=== PATIENT | female | born 1975 | race Caucasian/White ===

== ENCOUNTER 2016-12-29 05:53 | Emergency (ER) | payer MEDICAID ==
[~2016-12-29] VITALS: Ht 162.6 cm; Wt 110.0 kg
[~2016-12-29 05:53] MED LIST: B12/1TAB PO; CLON-365 PO; CYAN100028 PO; LAMO25TA6 PO; LORA10TA75 PO; MAGN296S PO; PROM25SU35 PR; TOPI25TA32 PO; TOPI50TA35 PO; VERA120T5 PO
[2016-12-29] MEDS ORDERED: CYCL-259 PO (06:23)
[2016-12-29] MEDS ORDERED: DIAZEPAM 5 MG/ML, 2ML IVPush ONE (07:00)
[2016-12-29] MEDS ORDERED: KETOROLAC 30 MG/1 ML ONE (08:49)
[2016-12-29] MEDS ORDERED: KETOROLAC 30 MG/1 ML IVPush ONE (09:00)
[2016-12-29 10:01] VITALS: BP 103/60
== END 2016-12-29 10:08 | disposition home or self-care (01) ==
LOC: ED 06:43
DX: M51.16 Intervertebral disc disorders with radiculopathy, lumbar region (principal); M54.42 Lumbago with sciatica, left side; G89.29 Other chronic pain; R20.8 Other disturbances of skin sensation; Z88.6 Allergy status to analgesic agent; Z88.8 Allergy status to other drugs, medicaments and biological substances
CPT/HCPCS: 96374; 96375; 99284; J1885; J3360; J7512

== ENCOUNTER → 2017-01-22 | Outpatient (CLI) | payer MEDICAID ==
[~2017-01-22] MED LIST changes: +CYCL-259 PO
== END | disposition home or self-care (01) ==
LOC: CFH 13:31
PROVIDERS: ATTEND Nurse Practitioner Family
DX: N64.9 Disorder of breast, unspecified (principal)
CPT/HCPCS: 76642; G0204

== ENCOUNTER 2017-07-27 12:09 | Emergency (ER) | payer MEDICAID ==
[~2017-07-27] VITALS: Ht 160 cm; Wt 106.4 kg
[~2017-07-27 12:09] MED LIST changes: -MAGN296S PO; +MAGN296S9 PO
[2017-07-27 13:54] LABS: CULTURE INDICATED? YES; MICROSCOPIC INDICATED
[2017-07-27] MEDS ORDERED: BIRTH CONTROL PO (14:19)
[2017-07-27] MEDS ORDERED: CEFTRIAXONE PMX 1GM/50ML 50 ML ONE (14:50)
[2017-07-27] MEDS ORDERED: KETOROLAC 30 MG/1 ML ONE (14:50)
[2017-07-27 15:00] LABS: BASOPHILS # (AUTO) 0.02 x10^3/uL (0-0.1); BASOPHILS % (AUTO) 0 % (0-1); EOSINOPHILS # (AUTO) 0.15 x10^3/uL (0-0.4); EOSINOPHILS % (AUTO) 2 % (1-7); LYMPHOCYTES # (AUTO) 2.07 x10^3/uL (1-3.4); LYMPHOCYTES % (AUTO) 27 % (22-44); MD NO; MEAN CORPUSCULAR HEMOGLOBIN 31.9 pg (27.0-34.8); MEAN CORPUSCULAR HGB CONC 33.6 g/dL (32.4-35.8); MEAN CORPUSCULAR VOLUME 94.8 fL (80-100); MEAN PLATELET VOLUME 9.6 fL (7.4-10.4); MONOCYTES # (AUTO) 0.52 x10^3/uL (0.2-0.8); MONOCYTES % (AUTO) 7 % (2-9); NEUTROPHILS # (AUTO) 5.05 x10^3/uL (1.8-6.8); NEUTROPHILS % (AUTO) 65 % (42-75); PLATELET COUNT 169 x10^3/uL (130-400); RED BLOOD COUNT 4.78 x10^6/uL (3.82-5.3); RED CELL DISTRIBUTION WIDTH 14.6 % (9.6-15.2)
[2017-07-27] MEDS ORDERED: SODIUM CHLORIDE FLUSH 10ML SYR IVF ONE (15:00)
[2017-07-27] MEDS ORDERED: KETOROLAC 30 MG/1 ML IVPush ONE (15:00)
[2017-07-27] MEDS ORDERED: CEFTRIAXONE PMX 1GM/50ML 50 ML IVPB ONE ×2 (15:00)
[2017-07-27 15:09] LABS: ALBUMIN 3.6 g/dL (3.4-5.0); ANION GAP 8 mmol/L (5-15); CALCIUM 8.7 mg/dL (8.5-10.1); CHLORIDE 111 mmol/L (98-107); CREATININE 0.64 mg/dL (0.55-1.02)
[2017-07-27 17:02] VITALS: BP 115/60
== END 2017-07-27 17:33 | disposition home or self-care (01) ==
LOC: ED 17:08
DX: N30.00 Acute cystitis without hematuria (principal); N10 Acute pyelonephritis; Z90.49 Acquired absence of other specified parts of digestive tract
CPT/HCPCS: 36415; 74176; 80048; 81001; 82040; 84703; 85025; 87077; 87086; 87186; 96365; 96366; 96375; 99285; J0696; J1885

== ENCOUNTER 2018-02-26 14:59 | Emergency (ER) | payer SELFPAY ==
[~2018-02-26] VITALS: Ht 162.6 cm; Wt 101.0 kg
[~2018-02-26 14:59] MED LIST changes: +BIRTH CONTROL PO; -CLON-365 PO; +CLON1TAB4 PO
[2018-02-26 15:27] VITALS: BP 119/68
[2018-02-26] MEDS ORDERED: KETOROLAC 30 MG/1 ML ONE (15:36)
[2018-02-26] MEDS ORDERED: DIAZEPAM 5 MG TABLET ONE (15:36)
[2018-02-26] MEDS ORDERED: KETOROLAC 30 MG/1 ML IM ONE (16:00)
[2018-02-26] MEDS ORDERED: DIAZEPAM 5 MG TABLET PO ONE (16:00)
== END 2018-02-26 17:12 | disposition home or self-care (01) ==
LOC: ED 16:26
DX: M54.12 Radiculopathy, cervical region (principal); G89.29 Other chronic pain; G43.909 Migraine, unspecified, not intractable, without status migrainosus; G40.909 Epilepsy, unspecified, not intractable, without status epilepticus; Z90.49 Acquired absence of other specified parts of digestive tract; Z88.5 Allergy status to narcotic agent; Z88.6 Allergy status to analgesic agent; M54.9 Dorsalgia, unspecified
CPT/HCPCS: 72050; 73030; 96372; 99284; J1885

== ENCOUNTER 2018-12-12 20:24 | Emergency (ER) | payer SELFPAY ==
[~2018-12-12] VITALS: Ht 160 cm; Wt 98.2 kg
[~2018-12-12 20:24] MED LIST changes: +CLON1TAB11 PO; -CLON1TAB4 PO
--- NOTE | 2018-12-12 20:26 | NUR ---
PT IN BATHROOM WHEN CALLED
[2018-12-12] MEDS ORDERED: ALBUTEROL/IPRATROPIUM 2.5MG/0.5MG, 3 ML NPPB ONE (21:00)
--- NOTE | 2018-12-12 21:06 | NUR ---
pt in rad at this time
[2018-12-12] MEDS ORDERED: ALBUTEROL/IPRATROPIUM 2.5MG/0.5MG, 3 ML ONE (21:09)
--- NOTE | 2018-12-12 21:10 | NUR ---
PT MEDICATED PER SEP. RT AT BEDSIDE. POC DISCUSSED. PT DENIES FURTHER NEEDS AT THIS TIME.
[2018-12-12] MEDS ORDERED: ALBUTEROL SULFATE 2.5 MG/3 ML NPPB ONE (22:00)
[2018-12-12 22:29] VITALS: BP 121/74
== END 2018-12-12 22:31 | disposition home or self-care (01) ==
LOC: ED 22:05
DX: J20.8 Acute bronchitis due to other specified organisms (principal); G43.909 Migraine, unspecified, not intractable, without status migrainosus; G89.29 Other chronic pain; G40.909 Epilepsy, unspecified, not intractable, without status epilepticus
CPT/HCPCS: 71046; 93005; 94640; 99284; J7512; J7613; J7620; 99283

== ENCOUNTER 2018-12-27 14:57 | Emergency (ER) | payer OTHER ==
[~2018-12-27] VITALS: Ht 162.6 cm; Wt 98.9 kg
[2018-12-27 15:04] VITALS: BP 117/79
--- NOTE | 2018-12-27 16:39 | NUR ---
Patient/Caregiver given discharge instructions and they have confirmed that they understand the instructions. Patient ambulatory with steady gait.
== END 2018-12-27 17:00 | disposition home or self-care (01) ==
LOC: ED 16:41
DX: S62.336A Displaced fracture of neck of fifth metacarpal bone, right hand, initial encounter for closed fracture (principal); G40.909 Epilepsy, unspecified, not intractable, without status epilepticus; G43.909 Migraine, unspecified, not intractable, without status migrainosus; Z91.040 Latex allergy status; Z88.6 Allergy status to analgesic agent; Z88.8 Allergy status to other drugs, medicaments and biological substances; W19.XXXA Unspecified fall, initial encounter; Y93.39 Activity, other involving climbing, rappelling and jumping off; Y92.098 Other place in other non-institutional residence as the place of occurrence of the external cause; Y99.8 Other external cause status
CPT/HCPCS: 29125; 99283

== ENCOUNTER 2019-08-15 09:04 | Emergency (ER) | payer SELFPAY ==
[~2019-08-15] VITALS: Ht 160 cm; Wt 102.1 kg
[2019-08-15 09:08] VITALS: BP 129/75
--- NOTE | 2019-08-15 09:47 | NUR ---
TO ROOM FROM LOBBY. NAD.
[2019-08-15] MEDS ORDERED: SODIUM CHLORIDE FLUSH 10ML SYR IVF ONE (10:30)
[2019-08-15] MEDS ORDERED: ONDANSETRON 2MG/ML, 2ML IVPush ONE (10:30)
[2019-08-15] MEDS ORDERED: FAMOTIDINE 20 MG/2 ML IVPush ONE (10:30)
[2019-08-15] MEDS ORDERED: SODIUM CHLORIDE 0.9% 1,000ML IVBOLUS ONE (10:30)
[2019-08-15] MEDS ORDERED: FAMOTIDINE 20 MG/2 ML ONE (11:01)
[2019-08-15] MEDS ORDERED: ONDANSETRON 2MG/ML, 2ML ONE (11:01)
[2019-08-15 11:23] LABS: BASOPHILS % (AUTO) 0 % (0-1); EOSINOPHILS # (AUTO) 0.14 x10^3/uL (0-0.4); EOSINOPHILS % (AUTO) 3 % (1-7); LYMPHOCYTES # (AUTO) 1.28 x10^3/uL (1-3.4); LYMPHOCYTES % (AUTO) 31 % (22-44); MD NO; MEAN CORPUSCULAR HEMOGLOBIN 31.5 pg (27.0-34.8); MEAN CORPUSCULAR HGB CONC 33.4 g/dL (32.4-35.8); MEAN CORPUSCULAR VOLUME 94.2 fL (80-100); MEAN PLATELET VOLUME 9.7 fL (7.4-10.4); MONOCYTES # (AUTO) 0.45 x10^3/uL (0.2-0.8); MONOCYTES % (AUTO) 11 % (2-9); NEUTROPHILS # (AUTO) 2.26 x10^3/uL (1.8-6.8); NEUTROPHILS % (AUTO) 55 % (42-75); PLATELET COUNT 150 x10^3/uL (130-400); RED BLOOD COUNT 4.64 x10^6/uL (3.82-5.3); RED CELL DISTRIBUTION WIDTH 13.9 % (9.6-15.2)
[2019-08-15 11:31] LABS: ALBUMIN 3.5 g/dL (3.4-5.0); ANION GAP 6 mmol/L (5-15); CALCIUM 8.2 mg/dL (8.5-10.1); CHLORIDE 110 mmol/L (98-107)
[2019-08-15 11:34] LABS: ALANINE AMINOTRANSFERASE 23 U/L (12-78); ALKALINE PHOSPHATASE 104 U/L (45-117); BILIRUBIN,TOTAL 0.9 mg/dL (0.2-1.0); CREATININE 0.78 mg/dL (0.55-1.02); TOTAL PROTEIN 6.8 g/dL (6.4-8.2)
[2019-08-15] MEDS ORDERED: DIPHENHYDRAMINE 50 MG/ML, 1ML ONE (11:43)
--- NOTE | 2019-08-15 11:51 | NUR ---
IV PLACED, PT DIFFICULT START WITH ATTEMPT FOR IV X4. MEDS GIVEN PER ERP ORDER, NS BOLUS STARTED. WITH ADMINISTRATION OF MEDS, PT R/O BURNING, REDNESS, AND ITCHING. RASH OBSERVED SUPERIOR TO IV. ERP NOTIFIED, BENADRYL GIVEN PER ERP ORDER. PAIN WORSENING, PT STATES SWELLING STARTING. NS BOLUS STOPPED. ALL RESULTS BACK, PT FOR RECHECK. NO VOMITING SINCE ARRIVING INTO ER.
[2019-08-15] MEDS ORDERED: DIPHENHYDRAMINE 50 MG/ML, 1ML IVPush ONE (12:00)
== END 2019-08-15 12:30 | disposition home or self-care (01) ==
LOC: ED 11:51
DX: R11.2 Nausea with vomiting, unspecified (principal); G40.909 Epilepsy, unspecified, not intractable, without status epilepticus; Z90.49 Acquired absence of other specified parts of digestive tract
CPT/HCPCS: 36415; 80053; 83690; 85025; 96374; 96375; 99283; J1200; J2405; J3490; J7030

== ENCOUNTER 2019-09-26 20:28 | Emergency (ER) | payer MEDICAID ==
[~2019-09-26] VITALS: Ht 162.6 cm; Wt 102.7 kg
[~2019-09-26 20:28] MED LIST changes: +MAGN296S67 PO; -MAGN296S9 PO; +VERA120T13 PO; -VERA120T5 PO
--- NOTE | 2019-09-26 21:15 | NUR ---
ASSESSMENT MADE. CHART UP FOR MD TO SEE. C/O LOWER BACK PAIN AND PAINFUL URINATION. UNABLE TO GIVE URINE SAMPLE AT THIS TIME.
[2019-09-26] MEDS ORDERED: METH40TA3 PO (21:18)
--- NOTE | 2019-09-26 21:32 | NUR ---
ERP AT BEDSIDE.
--- NOTE | 2019-09-26 21:47 | NUR ---
CAN DRAGGER AT BEDSIDE FOR BLOOD DRAW.
[2019-09-26 22:09] LABS: ALANINE AMINOTRANSFERASE 29 U/L (12-78); ALBUMIN 3.9 g/dL (3.4-5.0); ANION GAP 6 mmol/L (5-15); CALCIUM 8.6 mg/dL (8.5-10.1); CHLORIDE 106 mmol/L (98-107); CREATININE 0.72 mg/dL (0.55-1.02)
[2019-09-26 22:11] LABS: ALKALINE PHOSPHATASE 116 U/L (45-117); BILIRUBIN,TOTAL 0.8 mg/dL (0.2-1.0); TOTAL PROTEIN 7.4 g/dL (6.4-8.2)
--- NOTE | 2019-09-26 22:15 | NUR ---
PATIENT AMBULATED TO BATHROOM WITH STEADY GAIT TO OBTAIN URINE SAMPLE.
[2019-09-26 22:16] LABS: BASOPHILS # (AUTO) 0.02 x10^3/uL (0-0.1); BASOPHILS % (AUTO) 0 % (0-1); EOSINOPHILS # (AUTO) 0.19 x10^3/uL (0-0.4); EOSINOPHILS % (AUTO) 3 % (1-7); LYMPHOCYTES # (AUTO) 1.63 x10^3/uL (1-3.4); LYMPHOCYTES % (AUTO) 30 % (22-44); MD NO; MEAN CORPUSCULAR HEMOGLOBIN 31.7 pg (27.0-34.8); MEAN CORPUSCULAR HGB CONC 33.3 g/dL (32.4-35.8); MEAN CORPUSCULAR VOLUME 95.1 fL (80-100); MEAN PLATELET VOLUME 9.7 fL (7.4-10.4); MONOCYTES # (AUTO) 0.37 x10^3/uL (0.2-0.8); MONOCYTES % (AUTO) 7 % (2-9); NEUTROPHILS # (AUTO) 3.33 x10^3/uL (1.8-6.8); NEUTROPHILS % (AUTO) 60 % (42-75); PLATELET COUNT 153 x10^3/uL (130-400); RED BLOOD COUNT 4.65 x10^6/uL (3.82-5.3); RED CELL DISTRIBUTION WIDTH 14.3 % (9.6-15.2)
--- NOTE | 2019-09-26 22:22 | NUR ---
URINE SENT TO LAB.
[2019-09-26 22:36] LABS: HCG UR SG 1.025 (1.003-1.030)
[2019-09-26 22:50] LABS: MICROSCOPIC INDICATED
[2019-09-26 22:53] LABS: CULTURE INDICATED? YES
--- NOTE | 2019-09-26 23:13 | NUR ---
LABS RESULTED. CHART UP FOR MD TO RE-EVAL.
[2019-09-26 23:31] VITALS: BP 108/54
--- NOTE | 2019-09-26 23:31 | NUR ---
RE-EVALUATION DONE. PATIENT DISCHARGED WITH PRESCRIPTIONS AND INSTRUCTION. VERBALIZED UNDERSTANDING.
== END 2019-09-26 23:33 | disposition home or self-care (01) ==
LOC: ED 23:09
DX: N30.00 Acute cystitis without hematuria (principal); G89.29 Other chronic pain; G40.909 Epilepsy, unspecified, not intractable, without status epilepticus; Z90.49 Acquired absence of other specified parts of digestive tract
CPT/HCPCS: 36415; 80053; 81001; 81025; 83690; 85025; 87077; 87086; 99283

== ENCOUNTER 2019-10-24 12:08 | Emergency (ER) | payer MEDICAID ==
[~2019-10-24] VITALS: Ht 160 cm; Wt 105.0 kg
[~2019-10-24 12:08] MED LIST changes: +METH40TA3 PO
--- NOTE | 2019-10-24 12:36 | NUR ---
PT TO ROOM 10 PER PEDIS. PT WAS AMBULATING DOWNTOWN GABRIELLA, AND TRIPPED OVER RAISED CONCRETE. PT FELL FORWARD MICHAEL ON BILATERAL KNEES AND FLEXED WRISTS AND HANDS. PT HAS JUST RECOVERED FROM A BROKEN RIGHT HAND, AND NOW HAS PAIN AND SWELLING. PT HERE FOR XRAYS.
[2019-10-24 14:29] VITALS: BP 124/82
--- NOTE | 2019-10-24 14:34 | NUR ---
PT GIVEN DISCHARGE INSTRUCTIONS AND FOLLOW UP. PT VERBALIZES UNDERSTANDING AND FOLLOW UP. PT AMBULATED OUT OF ED.
== END 2019-10-24 14:31 | disposition home or self-care (01) ==
LOC: ED 12:25
DX: S63.521A Sprain of radiocarpal joint of right wrist, initial encounter (principal); S60.221A Contusion of right hand, initial encounter; X58.XXXA Exposure to other specified factors, initial encounter; Y93.89 Activity, other specified; Y92.488 Other paved roadways as the place of occurrence of the external cause; Y99.8 Other external cause status
CPT/HCPCS: 99284